=== PATIENT | female | born 1960 | race Caucasian/White ===

== ENCOUNTER 2019-09-27 20:10 | Observation (INO) | payer OTHER, SELFPAY ==
--- NOTE | ~2019-09-27 | XR_ITS ---
EXAMINATION: XR chest 2V 09/27/2019 21:01 INDICATION: Left-sided chest pain. Smoker. History of SVT. PROCEDURE: 2 view chest COMPARISON: No prior studies for comparison. FINDINGS: The lungs are clear. The cardiomediastinal silhouette is within normal limits. There are no pleural effusions. There is no pneumothorax suspected. IMPRESSION: 1: NO ACUTE CARDIOPULMONARY DISEASE. Reviewed, dictated and finalized at location A. [employer]IA ANALYST
[2019-09-27 20:14] VITALS: BP 133/72; PULSE 70; RESP 14; TEMP 36.8; O2SAT 98
[2019-09-27 20:20] VITALS: PULSE 72; O2SAT 99
--- NOTE | 2019-09-27 20:25 | ECG_ITS ---
Measurements Intervals [place] Rate: 76 P: 56 RI: 187 QRS: -23 QRSD: 94 T: 72 QT: 362 QTc: 408 Interpretive Statements SINUS RHYTHM WITH SINUS ARRHYTHMIA DELAYED PRECORDIAL R/S TRANSITION BASELINE ARTIFACT- I, III, AVL BORDERLINE ECG Electronically Signed On 09-27-2019 20:52:13 [employer] by aJc Barrientos D.O.
--- NOTE | 2019-09-27 20:29 | ED.CHESTPAIN ---
HPI - Chest Pain General Chief Complaint: Chest Pain Stated Complaint: chest pain Time Seen by Provider: 09/27/19 20:20 Source: patient and RN notes reviewed Mode of arrival: EMS Limitations: no limitations History of Present Illness HPI narrative: Pt is a 59 y/o female who presents to the ED via EMS with c/o lt sided chest pain starting roughly 1 hour ago. She describes her pain as sharp, and notes that her pain is aggravated with deep breathing. Pt currently rates her pain at 8/10. She also reports an ongoing cough for the past several months, but denies any acute SOB, fever, diaphoresis, nausea, or vomiting. Pt states that she has taken 4 ASA 81 mg prior to her arrival to the ED. MD complaint: chest pain Onset (ago): hour(s) (1) Pain location: left chest Pain scale (0-10): 8 Quality: sharp Exacerbating factors: other (deep breathing) Associated symptoms: cough Treatment prior to arrival: aspirin (4 x 81 mg) Related Data Home Medications Medication Instructions Recorded Confirmed diltiazem HCl 09/27/19 imipramine HCl 09/27/19 lorazepam 09/27/19 risperidone 09/27/19 Allergies Allergy/AdvReac Type Severity Reaction Status Date / Time amoxicillin Allergy Abdominal Verified 09/27/19 20:18 Pain guaifenesin [From Mucinex D] Allergy Palpitation Verified 09/27/19 20:18 s pseudoephedrine Allergy Palpitation Verified 09/27/19 20:18 [From Sudafed] s Review of Systems Review of Systems: All systems reviewed & are unremarkable except as noted in HPI and below Constitutional: Constitutional: Denies fever(s) ENT: Denies dizziness and Denies headache(s) Cardiovascular: Cardiovascular: Reports chest pain (lt sided) and Denies diaphoresis Respiratory: Respiratory: Reports cough and Denies dyspnea Gastrointestinal: Gastrointestinal: Denies nausea and Denies vomiting PMF Past Medical History Medical History (Updated 09/27/19 @ 22:12 by Edwin Castillo MD) Healthy female adult Surgical History Surgical History (Updated 09/27/19 @ 21:01 by Chavez Sanders) No significant past surgical history Social History Social History Smoking status: Smoker, status unknown Exam Const: General: cooperative, healthy appearing, comfortable, no acute distress, well developed, alert and awake; No confusion Orientation/consciousness: oriented to person, oriented to place, oriented to time, patient oriented x3 and No confusion Limitations: no limitations HENMT: Head: normal to inspection, normocephalic and atraumatic Chest: Chest palpation & inspection: normal inspection of the chest Resp: Effort & Inspection: normal respiratory effort, able to speak in complete sentences, no respiratory distress and not tachypneic Auscultation: clear to auscultation bilaterally, no crackles, no rales, no rhonchi and no wheezes Cardio: Rate: regular rate Rhythm: regular rhythm GI: Inspection: normal to inspection GI Palp: No abdominal tenderness, Yes Soft to palpation, No Tenderness to palpation present (GI), No Guarding due to palpation present (GI), No Rigid due to palpation and No Rebound tenderness present Auscultation: normal bowel sounds Skin: General skin exam: normal color, no rashes or lesions noted, elasticity normal and turgor normal Neuro: General: oriented to person, oriented to place, oriented to time, patient oriented x3, tone normal, moves all extremities, Normal light touch and pain sensation, no meningeal signs, no focal motor deficits, CN's II-XI intact bilaterally and No confusion Cranial nerves: Yes Equal, round and reactive pupils present Speech: No Abnormal speech present Sensory Exam: No Sensory deficit (Neuro) Extrem: General: normal to inspection, full ROM and capillary refill normal Psych: Appearance: grossly normal and well kempt Mental Status: mental status grossly normal Speech and movement: Normal speech and movement present A
[2019-09-27] MEDS: NITROGLYCERIN OINTMENT 1 INCH DOSE TRANSDERM (20:47)
[2019-09-27 21:30] LABS: Basophils Absolute Auto 0.1 K/mm3 (0.0-0.1); Basophils Percent Auto 1.1 % (0.2-1.2); Eosinophils Absolute Auto 0.2 K/mm3 (0-0.3); Eosinophils Percent Auto 2.3 % (0-4.4); Hematocrit 42.6 % (37.0-47.0); Hemoglobin 14.5 g/dL (12.0-15.0); Immature Granulocyte Absolute 0.01 K/mm3 (0.00-0.031); Immature Granulocyte Percent A 0.1 % (0-0.5); Lymphocytes Absolute Auto 4.25 K/mm3 (0.9-3.2); Lymphocytes Percent Auto 46.5 % (18.3-44.2); Mean Corpuscular Hemoglobin 30.9 pg (26-34); Mean Corpuscular Volume 90.6 fl (80-100); Mean Platelet Volume 10.3 fl (7.4-10.4); Monocytes Absolute Auto 0.8 K/mm3 (0.1-0.6); Monocytes Percent Auto 8.9 % (2.6-8.5); Neutrophils Absolute Auto 3.8 K/mm3 (1.3-6.7); Neutrophils Percent Auto 41.1 % (45.5-73.1); Platelet Count Result 303 k/mm3 (150-375); Red Cell Distribution Width 12.7 % (11.5-14.5); White Blood Count 9.1 K/mm3 (4.5-10.0)
[2019-09-27 21:40] LABS: Blood Urea Nitrogen 20 mg/dL (7-17); Calcium 8.9 mg/dL (8.4-10.2); Carbon Dioxide 28 mmol/L (22-30); Chloride 101 mmol/L (98-107); Estimated Glomerular Filt Rate > 60; Glucose 95 mg/dL (65-105); Potassium 4.2 mmol/L (3.4-5.0); Sodium 139 mmol/L (137-145)
[2019-09-27 21:41] LABS: INR 0.9; Prothrombin Time 12.1 Seconds (11.1-14.7)
[2019-09-27 21:42] LABS: Partial Thromboplastin Time 28.2 SECONDS (22.3-36.8)
[2019-09-27 21:52] LABS: Troponin I < 0.012 ng/mL (0.000-0.034)
[2019-09-27 21:54] LABS: D Dimer 0.42 ug/mL (<0.48)
[2019-09-27 22:51] VITALS: BP 119/69; PULSE 74; RESP 18; O2SAT 96
[2019-09-27 23:01] VITALS: BMI 23.6
[2019-09-27 23:09] VITALS: BP 138/74; PULSE 66; PULSE 69; RESP 16; TEMP 36.3; O2SAT 97
--- NOTE | 2019-09-27 23:11 | ADMGEN ---
This patient, Priscilla Urbina, was [facility] at 2301 Patient/family oriented to hospital policies and general routines including ID bracelet, bed and alarms, visiting hours, pain management, procedures, bathroom and other care routines, personal items, smoking policy, room service/diet, and visiting hours. Valuables list has been completed. Information on how to activate the Rapid Response Team has been discussed. Patient/Family are encouraged to report perceived risks to care and to ask questions if they do not understand what they are told or what they should do.
[2019-09-28] VITALS: BP 126/73; PULSE 73; RESP 23; TEMP 36.3; O2SAT 97
[2019-09-28 00:43] LABS: Troponin I < 0.012 ng/mL (0.000-0.034)
[2019-09-28 02:00] VITALS: PULSE 76
[2019-09-28 03:46] LABS: Troponin I < 0.012 ng/mL (0.000-0.034)
[2019-09-28 04:00] VITALS: BP 119/72; PULSE 71; RESP 14; TEMP 36.7; O2SAT 98
[2019-09-28 08:00] VITALS: BP 125/66; PULSE 75; PULSE 93; RESP 16; TEMP 37.3; O2SAT 97
--- NOTE | 2019-09-28 08:47 | PC.NURSE ---
DR. ROSAS HERE TO SEE PT.
--- NOTE | 2019-09-28 09:10 | PM.DS ---
DS: Diagnosis Admitting Diagnosis Admitting Diagnosis: Chest pain Discharge Diagnosis (1) Non-cardiac chest pain: Onset Date: 09/27/19 Code(s): R07.89 - Other chest pain Status: Acute (2) Tobacco use: Code(s): Z72.0 - Tobacco use Status: Acute DS: Summary Hospital Course Reason for hospitalization: CHEST PAIN Hospital Course: . Time spent discussing smoking cessation with patient: 3 to 10 minutes Status at Discharge Functional status at discharge: independent ambulation Overall status at discharge: patient is back to baseline Time Spent with Patient Time attestation: Total time spent providing and/or coordinating discharge services: 45 MINUTES Time spent: Greater than 30 minutes Specific discharge activities: Smoking cessation recommended Follow-up with PMDDr. Mejia Exam Const: General: comfortable and no acute distress Limitations: No altered mental status HENMT: Mouth: Yes moist mucous membranes Eyes: EOM: EOMs intact bilaterally Neck: Neck: supple and No no JVD Carotids: no bruits Resp: Effort & Inspection: normal respiratory effort Auscultation: rales (Rales in her bases) Cardio: Rate: regular rate Rhythm: regular rhythm Heart sounds: no murmurs and no rubs GI: Inspection: non-distended GI Palp: Yes Soft to palpation and No Tenderness to palpation present (GI) Auscultation: normal bowel sounds Neuro: Motor exam (neuro): Normal motor muscle tone present throughout Extrem: Right lower extremity: no edema Left lower extremity: no edema Psych: Speech and movement: Normal speech and movement present Affect: normal affect Thought content: Yes Normal thought content present DS: Data Data Completed and Pending Labs on day of discharge: Labs from last 24 hours 09/28/19 09/28/19 09/27/19 03:17 00:14 21:24 WBC RBC Hgb Hct MCV MCH MCHC RDW Plt Count MPV Immature Gran % (Auto) Neut % (Auto) Lymph % (Auto) [place] % (Auto) Eos % (Auto) Baso % (Auto) Lymph # (Auto) [place] # (Auto) Eos # (Auto) Baso # (Auto) Abs Immat Gran (auto) Absolute Neuts (auto) Absolute Nucleated RBC Nucleated RBC % PT INR APTT D-Dimer Sodium 139 Potassium 4.2 Chloride 101 Carbon Dioxide 28 BUN 20 H Creatinine 0.70 Estim Creat Clear Calc Not Reportable Estimated GFR > 60 Glucose 95 Calcium 8.9 Troponin I < 0.012 < 0.012 < 0.012 09/27/19 09/27/19 09/27/19 21:24 21:24 21:24 WBC 9.1 RBC 4.70 Hgb 14.5 Hct 42.6 MCV 90.6 MCH 30.9 MCHC 34.0 RDW 12.7 Plt Count 303 MPV 10.3 Immature Gran % (Auto) 0.1 Neut % (Auto) 41.1 L Lymph % (Auto) 46.5 H [place] % (Auto) 8.9 H Eos % (Auto) 2.3 Baso % (Auto) 1.1 Lymph # (Auto) 4.25 H [place] # (Auto) 0.8 H Eos # (Auto) 0.2 Baso # (Auto) 0.1 Abs Immat Gran (auto) 0.01 Absolute Neuts (auto) 3.8 Absolute Nucleated RBC 0.0 Nucleated RBC % 0.0 PT 12.1 INR 0.9 APTT 28.2 D-Dimer 0.42 Sodium Potassium Chloride Carbon Dioxide BUN Creatinine Estim Creat Clear Calc Estimated GFR Glucose Calcium Troponin I Troponins were negative x3. EKG on my personal review showed NSR, normal intervals, no ischemia new line chest x-ray was read as no acute disease, although I am my view is appears the patient has hyperinflation. Discharge Plan Discharge Attending physician on discharge: Cecilia Gallego Discharging Clinician: Cecilia Gallego Anticipated Discharge Date/Time: 09/28/19 09:03 Patient Disposition: Home, Self-Care Activity: unlimited Diet: heart healthy Discharge Instructions: Stopping smoking will help keep you healthy and lower your risk of getting heart disease, cancer and worsening lung disease. I think you are starting to get COPD/emphysema. Follow-up with Dr. Mejia
--- NOTE | 2019-09-28 09:30 | PM.SD ---
Same Day Admit/Disch: HPI History of Present Illness Chief complaint: chest pain Narrative: Date of admission: 09/27/2019 Date of service: 09/28/2019 Date of discharge: 09/28/2019 Priscilla Urbina is a 59 year old female smoker who was admitted to the emergency room with [facility]. The patient was in her usual state of health until about an hour after dinner last night she started having gas the left mid chest pain. She described this as a sharp pain and sometimes clenching. She took 3 simethicone tablets but the pain persisted so she came to the emergency room. The pain was aggravated by movement such as sitting upper twisting. There is no associated nausea vomiting shortness of breath or diaphoresis. It is resolved today. The patient's troponins were negative x3. Her EKG was normal. Her chest x-ray showed no active disease but I suspect there is some degree of hyperinflation. [facility] Past Medical History Medical History Anxiety and depression Healthy female adult History of recurrent miscarriages, not currently Panic attacks PSVT (paroxysmal supraventricular tachycardia) Seizure Isolated sz when Tobacco use Surgical History Surgical History (Updated 09/28/19 @ 09:08 by Cecilia Gallego MD) H/O dilation and curettage No significant past surgical history Family History Family History (Updated 09/28/19 @ 09:10 by Cecilia Gallego MD) Mother Hodgkin lymphoma Diabetes mellitus Kidney disease Gall stone Hypertension Sibling Diabetes mellitus Hypertension 2 brothers Heart disease brother Go had CT in stents in his late 60s Depression 1 brother, 2 sisters Hepatitis C Liver failure Alcohol abuse Colon cancer Sleep apnea Glaucoma FH: cholecystectomy 3 sisters, 2 brothers. DDD (degenerative disc disease) 2 brothers. Obesity Ovarian tumor Arthritis Father Heart disease, Onset Age: 83 in his sleep, no history of heart disease but presumed cause of was CT Social History Social History Smoking packs per day: 1 Smoking cigarettes per day: 20.0 Years smoked: 50 Smoking pack-years: 50.00 Smoking status: Current every day smoker Tobacco type: cigarettes Gender identity (if verbalized by the patient): Female Same Day Admit/Disch: Med Pre-admit Medications Home Medications Medication Instructions Recorded Confirmed Type diltiazem HCl 125 mg PO TID 09/27/19 09/27/19 History imipramine HCl 25 mg PO TID 09/27/19 09/27/19 History lorazepam 1 mg PO BID PRN 09/27/19 09/27/19 History risperidone 25 mg PO HS 09/27/19 09/27/19 History Exam Const: General: cooperative, healthy appearing, comfortable and no acute distress; No confusion Orientation/consciousness: patient oriented x3 and No confusion HENMT: Head: normal to inspection and no cranial bruits Ears: external ears normal General nose exam: Normal external nose present Face and sinus: normal facial exam Mouth: Yes Normal oral and palatal mucosa present Eyes: General: appearance normal, both eyes and all related structures EOM: EOMs intact bilaterally Neck: Neck: normal visual inspection, supple and No JVD Thyroid: thyroid normal Carotids: no bruits Chest: Chest palpation & inspection: normal inspection of the chest and no tenderness Resp: Effort & Inspection: normal respiratory effort, able to speak in complete sentences and no audible wheezes Auscultation: clear to auscultation bilaterally and rales (Rales in both bases) Cardio: Jugular venous distension: JVD present Rate: regular rate Rhythm: regular rhythm Heart sounds: no murmurs Bruits: no abdominal aortic bruits Other: No chest wall tenderness GI: Inspection: normal to inspection GI Palp: No abdominal tenderness, No Abdominal aortic bruit present and No No hepatosplenomegaly present A
[2019-09-28] MEDS: IMIPRAMINE HCL 25 MG TABLET PO (09:47)
[2019-09-28] MEDS: IBUPROFEN 200 MG TABLET PO (10:45)
== END 2019-09-28 10:55 | disposition home or self-care (01) ==
LOC: ANHED 22:12 → ANHCPC 22:19
PROVIDERS: Admitting Provider Internal Medicine Cardiovascular Disease; Emergency Provider Emergency Medicine; Visit Provider Internal Medicine Cardiovascular Disease
DX: R07.89 Other chest pain (principal); F17.210 Nicotine dependence, cigarettes, uncomplicated
CPT/HCPCS: 36415; 71046; 80048; 84484; 85025; 85380; 85610; 85730; 93005; 99285; A9270; G0378

== ENCOUNTER 2020-02-16 12:52 | Emergency (ER) | payer OTHER, SELFPAY ==
--- NOTE | ~2020-02-16 | XR_ITS ---
EXAMINATION: XR chest 2V DATE: 02/16/2020 14:10 INDICATION: Cough. TECHNIQUE: Frontal and lateral views of the chest were obtained. COMPARISON: Chest 2 views 09/27/2019 FINDINGS: The chest demonstrates clear lungs without pneumonia, pleural effusion, or pneumothorax. Th e heart size is normal. IMPRESSION: 1. No acute cardiopulmonary disease. Reviewed, dictated and finalized at location A.
[2020-02-16 13:07] VITALS: BP 138/80; PULSE 100; RESP 18; TEMP 36.3; O2SAT 97
[2020-02-16 13:22] VITALS: O2SAT 97
--- NOTE | 2020-02-16 14:35 | ED.URI ---
HPI - URI/Sore Throat General Chief Complaint: Upper Respiratory Infection Stated Complaint: pneumonia Time Seen by Provider: 02/16/20 13:44 Source: patient Mode of arrival: ambulatory Limitations: no limitations History of Present Illness HPI Narrative: This is a 59 year old female that presents to the ER for cold symptoms x 2 weeks. Reports she has been seen by her PCP for this and finished a Z-Khalif. Reports cough, congestion and shortness of breath. Reports she does smoke, but does not have any history of COPD. Denies fever or chest pain. Related Data Home Medications Medication Instructions Recorded Confirmed diltiazem HCl 125 mg PO TID 09/27/19 09/27/19 imipramine HCl 25 mg PO TID 09/27/19 09/27/19 lorazepam 1 mg PO BID PRN 09/27/19 09/27/19 risperidone 1 mg PO HS 09/27/19 09/28/19 Allergies Allergy/AdvReac Type Severity Reaction Status Date / Time amoxicillin Allergy Abdominal Verified 02/16/20 13:23 Pain guaifenesin [From Mucinex D] Allergy Palpitation Verified 02/16/20 13:23 s pseudoephedrine Allergy Palpitation Verified 02/16/20 13:23 [From Sudafed] s Review of Systems Review of Systems: Narrative: CONSTITUTIONAL: Denies fever ENT: Reports rhinorrhea, congestion. Denies sore throat, or otalgia. CARDIOVASCULAR: Denies chest pain RESPIRATORY: Reports cough and dyspnea. All systems reviewed & are unremarkable except as noted in HPI and below PMFSH Past Medical History Medical History Anxiety and depression Healthy female adult History of recurrent miscarriages, not currently Panic attacks PSVT (paroxysmal supraventricular tachycardia) Seizure Isolated sz when Tobacco use Surgical History Surgical History (System 11/08/19 @ 14:47 by Dorita Wilder) H/O dilation and curettage No significant past surgical history Family History Family History (System 11/08/19 @ 14:47 by Dorita Wilder) Mother Hodgkin lymphoma Diabetes mellitus Kidney disease Gall stone Hypertension Sibling Diabetes mellitus Hypertension 2 brothers Heart disease brother Go had ID in stents in his late 60s Depression 1 brother, 2 sisters Hepatitis C Liver failure Alcohol abuse Colon cancer Sleep apnea Glaucoma FH: cholecystectomy 3 sisters, 2 brothers. DDD (degenerative disc disease) 2 brothers. Obesity Ovarian tumor Arthritis Father Heart disease, Onset Age: 83 in his sleep, no history of heart disease but presumed cause of was ID Social History Social History (System 11/08/19 @ 14:47 by Dorita Wilder) Smoking packs per day: 1 Smoking cigarettes per day: 20.0 Years smoked: 50 Smoking pack-years: 50.00 Smoking status: Current every day smoker Tobacco type: cigarettes Gender identity (if verbalized by the patient): Female Exam Narrative: Exam Narrative: GENERAL: Well-appearing, well-nourished, and in no acute distress. HEAD: Normocephalic, atraumatic. EYES: EOMI. ENT: Nares clear, no rhinorrhea or epistaxis. Mucous membranes moist. Oropharynx without tonsillar hypertrophy exudate or other lesions. Bilateral TMs pearly rice non-bulging NECK: Supple. No adenopathy or masses. CHEST: No respiratory distress. Mild scattered wheezes. No rales or rhonchi HEART: Regular rate and rhythm. No murmur heard. Normal peripheral pulses. EXTREMITIES: Normal range of motion. No edema. SKIN: Warm, dry, no rash. NEURO: No focal deficits. Alert and oriented x3. PSYCH: Normal mood and affect Course Vital Signs Vital signs: Vital Signs Temperature 97.4 F L 02/16/20 13:07 Pulse Rate 100 02/16/20 13:07 Respiratory Rate 18 02/16/20 13:07 Blood Pressure 138/80 02/16/20 13:07 Pulse Oximetry 97 02/16/20 13:07 Temperature 97.4 F L 02/16/20 13:07 Pulse Rate 100 02/16/20 13:07 Respiratory Rate 18 02/16/20 13:07 Blood Pressure 138/80
[2020-02-16] MEDS: ALBUTEROL SULFATE (*SP) AEROSOL 1 PUFF 2 PUFF INHALATION (14:59)
[2020-02-16 15:05] LABS: Basophils Absolute Auto 0.1 K/mm3 (0.0-0.1); Basophils Percent Auto 0.9 % (0.2-1.2); Eosinophils Absolute Auto 0.2 K/mm3 (0-0.3); Eosinophils Percent Auto 2.1 % (0-4.4); Hematocrit 43.9 % (37.0-47.0); Hemoglobin 15.1 g/dL (12.0-15.0); Immature Granulocyte Absolute 0.01 K/mm3 (0.00-0.031); Immature Granulocyte Percent A 0.1 % (0-0.5); Lymphocytes Absolute Auto 3.09 K/mm3 (0.9-3.2); Lymphocytes Percent Auto 35.4 % (18.3-44.2); Mean Corpuscular HGB Conc 34.4 g/dl (32-36); Mean Corpuscular Hemoglobin 31.5 pg (26-34); Mean Corpuscular Volume 91.5 fl (80-100); Mean Platelet Volume 10.1 fl (7.4-10.4); Monocytes Absolute Auto 0.7 K/mm3 (0.1-0.6); Monocytes Percent Auto 8.2 % (2.6-8.5); Neutrophils Absolute Auto 4.7 K/mm3 (1.3-6.7); Neutrophils Percent Auto 53.3 % (45.5-73.1); Platelet Count Result 303 k/mm3 (150-375); Red Cell Distribution Width 12.7 % (11.5-14.5); White Blood Count 8.7 K/mm3 (4.5-10.0)
[2020-02-16 15:22] LABS: Blood Urea Nitrogen 17 mg/dL (7-17); Calcium 8.9 mg/dL (8.4-10.2); Carbon Dioxide 26 mmol/L (22-30); Chloride 103 mmol/L (98-107); Estimated CRCL calculation 68 ml/min; Estimated Glomerular Filt Rate > 60; Glucose 115 mg/dL (65-105); Sodium 135 mmol/L (137-145)
== END 2020-02-16 16:20 | disposition home or self-care (01) ==
PROVIDERS: Physician Assistant; Emergency Provider Emergency Medicine
DX: B34.9 Viral infection, unspecified (principal); F41.9 Anxiety disorder, unspecified; F32.9 Major depressive disorder, single episode, unspecified; F17.210 Nicotine dependence, cigarettes, uncomplicated
CPT/HCPCS: 36415; 71046; 80048; 85025; 96372; 99283; A9270; J1100